=== PATIENT | female | born 1935 | race Caucasian/White ===

== ENCOUNTER 2017-01-09 10:09 | Inpatient (IN) | payer MEDICARE ==
[~2017-01-09 10:09] MED LIST: AMLO5TAB2 PO; BUPIVACAINE/PF 0.5% ONE; CLOP75TA22 PO; EPINEPHRINE 1 MG/ML, 1ML ONE; ESOM40CA PO; EZET10TA3 PO; HYDR-3144 PO; LOSA1TAB16 PO; MAGN400T22 PO; METO50TA82 PO; NEOSPORIN OINT, 15GM ONE; PREG150C PO; ROSU10TA PO
== END 2017-01-09 11:41 | disposition home or self-care (01) | DRG 951 ==
LOC: ORIP 10:09
PROVIDERS: ADMIT Orthopaedic Surgery Orthopaedic Surgery of the Spine; ATTEND Orthopaedic Surgery Orthopaedic Surgery of the Spine
DX: Z02.9 Encounter for administrative examinations, unspecified (principal)
CPT/HCPCS: J0171; J3490

== ENCOUNTER 2017-01-14 09:23 | Inpatient (IN) | payer MEDICARE ==
[~2017-01-14] VITALS: Ht 165.1 cm; Wt 66.5 kg
[~2017-01-14 09:23] MED LIST changes: -BUPIVACAINE/PF 0.5% ONE; -EPINEPHRINE 1 MG/ML, 1ML ONE; -NEOSPORIN OINT, 15GM ONE
[2017-01-14 10:01] VITALS: BP 131/77
[2017-01-14] MEDS ORDERED: LACTATED RINGERS 1,000 ML IV SCH (10:16)
[2017-01-14] MEDS ORDERED: ASPI-515 PO (11:01)
[2017-01-14] MEDS ORDERED: PLAVIX (11:01)
[2017-01-14] MEDS ORDERED: FENTANYL PF 250 MCG/5ML ONE (11:48)
[2017-01-14] MEDS ORDERED: BUPIVACAINE/PF-EPI 0.5% 1:200K ONE (11:56)
[2017-01-14] MEDS ORDERED: PROPOFOL 10 MG/ML, 20ML ONE (12:05)
[2017-01-14] MEDS ORDERED: DEXAMETHASONE 4 MG/ML, 1ML ONE (12:05)
[2017-01-14] MEDS ORDERED: CEFAZOLIN 1,000 MG ONE (12:05)
[2017-01-14] MEDS ORDERED: ONDANSETRON 2MG/ML, 2ML ONE (12:05)
[2017-01-14] MEDS ORDERED: SUCCINYLCHOLINE 20 MG/ML, 10ML ONE (12:05)
[2017-01-14] MEDS ORDERED: MAGNESIUM HYDROXIDE 8%, 30ML UDC PO PRN (12:30)
[2017-01-14] MEDS ORDERED: SENNA/DOCUSATE TABLET PO PRN (12:30)
[2017-01-14] MEDS ORDERED: BISACODYL 10 MG SUPP PR PRN (12:30)
[2017-01-14] MEDS ORDERED: ALUMINUM/MAG/SIMETHICONE 30 ML UDC PO PRN (12:30)
[2017-01-14] MEDS ORDERED: OXYcodone/APAP 5/325MG TABLET PO PRN (12:30)
[2017-01-14] MEDS ORDERED: ONDANSETRON 2MG/ML, 2ML IV PRN (12:30)
[2017-01-14] MEDS ORDERED: morphine SULFATE 10 MG/ML, 1ML IV PRN (12:30)
[2017-01-14] MEDS ORDERED: MIDAZOLAM 1 MG/ML, 2ML IV PRN (13:00)
[2017-01-14] MEDS ORDERED: HYDROmorphone 1 MG/ML, 1ML ONE ×2 (13:00→13:40)
[2017-01-14] MEDS ORDERED: OXYcodone 5 MG/5 ML ORAL.SOL UDC PO PRN (13:00)
[2017-01-14] MEDS ORDERED: METOPROLOL 1 MG/ML, 5ML IV PRN (13:00)
[2017-01-14] MEDS ORDERED: hydrALAzine 20 MG/ML, 1ML IV PRN (13:00)
[2017-01-14] MEDS ORDERED: ONDANSETRON 2MG/ML, 2ML IVPush PRN (13:00)
[2017-01-14] MEDS ORDERED: FENTANYL PF 100 MCG/2ML ONE ×2 (13:30→13:54)
[2017-01-14] MEDS ORDERED: OXYcodone 5 MG/5 ML ORAL.SOL UDC ONE (13:30)
[2017-01-14] MEDS: FENTANYL PF 100 MCG/2ML IV PRN ×3 (13:34→13:59)
[2017-01-14] MEDS: HYDROmorphone 1 MG/ML, 1ML IV PRN ×4 (13:40→14:02)
[2017-01-14] MEDS ORDERED: HYDROmorphone 2 MG/ML, 1ML ONE (13:54)
[2017-01-14] MEDS ORDERED: CEFAZOLIN PMX 1GM/50ML 50 ML IVPB SCH (16:00)
[2017-01-14] MEDS: D5%-0.45% NACL 1,000 ML IV SCH (16:52)
[2017-01-14] MEDS: morphine SULFATE 10 MG/ML, 1ML IV PRN ×2 (16:52→18:49)
[2017-01-14 18:47] VITALS: BP 120/63
[2017-01-14] MEDS: CEFAZOLIN PMX 1GM/50ML 50 ML IVPB SCH (20:06)
[2017-01-14] MEDS ORDERED: DOCUSATE 100 MG CAPSULE PO SCH (21:00)
[2017-01-14] MEDS: ATORVASTATIN 10 MG TABLET PO SCH ×2 (21:00→21:16)
[2017-01-14] MEDS: DOCUSATE 100 MG CAPSULE PO SCH (21:16)
[2017-01-14 23:16] VITALS: BP 123/53
[2017-01-15] MEDS: HYDROcodone/APAP 5/325 TABLET PO PRN ×3 (00:07→09:13)
[2017-01-15] MEDS: D5%-0.45% NACL 1,000 ML IV SCH (02:02)
[2017-01-15 03:30] VITALS: BP 101/60
[2017-01-15] MEDS: CEFAZOLIN PMX 1GM/50ML 50 ML IVPB SCH ×2 (03:55→12:00)
[2017-01-15 06:47] VITALS: BP 124/61
[2017-01-15] MEDS: DOCUSATE 100 MG CAPSULE PO SCH (08:20)
[2017-01-15] MEDS ORDERED: LOSARTAN 50MG TABLET PO SCH (09:00)
[2017-01-15] MEDS ORDERED: EZETIMIBE 10 MG TABLET PO SCH (09:00)
[2017-01-15] MEDS ORDERED: PANTOPROZOLE 40MG TABLET PO SCH (09:00)
[2017-01-15] MEDS ORDERED: METOPROLOL TARTRATE 50 MG TABLET PO SCH (09:00)
[2017-01-15] MEDS ORDERED: MAGNESIUM OXIDE 400 MG TABLET PO SCH (09:00)
[2017-01-15] MEDS ORDERED: AMLODIPINE 5 MG TABLET PO SCH (09:00)
[2017-01-15] MEDS ORDERED: HYDROCHLOROTHIAZIDE 12.5 MG CAPSULE PO SCH (09:00)
[2017-01-15] MEDS ORDERED: ASPI-515 PO (11:48)
[2017-01-15] MEDS ORDERED: CLOP75TA22 PO (11:49)
[2017-01-15 11:50] VITALS: BP 116/58
== END 2017-01-15 12:25 | disposition home or self-care (01) | DRG 460 ==
LOC: ORIP 09:23 → 4NOR 15:31 → DCLOUNGE 01-15 12:07
PROVIDERS: ADMIT Orthopaedic Surgery Orthopaedic Surgery of the Spine; ATTEND Orthopaedic Surgery Orthopaedic Surgery of the Spine
PROC: 0JN Subcutaneous Tissue and Fascia, Release (ICD-10-PCS; 2017-01-14)
PROC: 0SP804Z Removal of Internal Fixation Device from Left Sacroiliac Joint, Open Approach (ICD-10-PCS; 2017-01-14)
PROC: 0SG807Z Fusion of Left Sacroiliac Joint with Autologous Tissue Substitute, Open Approach (ICD-10-PCS; principal; 2017-01-14 12:00)
DX: M96.0 Pseudarthrosis after fusion or arthrodesis (principal); I10 Essential (primary) hypertension; Z86.73 Personal history of transient ischemic attack (TIA), and cerebral infarction without residual deficits
CPT/HCPCS: 72202; 76001; 93005; J0690; J1100; J1170; J2405; J2704; J3010; C1762; C1776; J0330; J2270; J7120